=== PATIENT | male | born 1955 | race Caucasian/White ===

== ENCOUNTER 2020-02-19 05:57 | Inpatient (IN) ==
[2020-02-13 11:51] LABS: Basophils # (Auto) 0.04 K/mcL (0.00-0.20); Basophils % (Auto) 0.6 % (0.0-2.0); Eosinophils % (Auto) 4.8 % (0.0-7.0); Hematocrit 33.1 % (41.0-55.0); Hemoglobin 11.1 g/dL (13.5-16.5); Lymphocytes # (Auto) 1.29 K/mcL (1.50-4.80); Lymphocytes % (Auto) 20.8 % (15.0-49.0); Mean Cell Volume 97.9 fL (80.0-100.0); Mean Corpuscular HGB Conc 33.5 g/dL (31.0-36.0); Mean Platelet Volume 9.7 fL (7.4-10.4); Monocytes # (Auto) 0.65 K/mcL (0.10-0.90); Monocytes % (Auto) 10.5 % (1.0-12.0); Neutrophils % (Auto) 63.3 % (38.0-78.0); Platelet Count 238 K/mcL (140-440); RBC 3.38 M/mcL (4.50-5.90); Red Cell Distribution Width 12.7 % (11.5-14.5); WBC 6.2 K/mcL (4.5-11.0)
[2020-02-13 12:30] LABS: Blood Urea Nitrogen 15 mg/dL (8-23); Calcium 8.9 mg/dL (8.6-10.4); Carbon Dioxide 26 mmol/L (22-30); Chloride 98 mmol/L (96-108); Glomerular Filtration Rate 98; Glucose 111 mg/dL (70-105); Partial Thromboplastin Time 32.7 sec (20.0-37.0); Prothrombin Time 13.7 sec (11.9-14.5)
[2020-02-13 13:29] LABS: Appearance,Urine CLEAR (Clear); Bilirubin,Urine Negative (Negative); Color,Urine YELLOW; Culture Indicated,Urine yes; Glucose,Urine (UA) Negative (Negative); Ketones,Urine Negative (Negative); Leukocyte Esterase,Urine 25 /ug (Negative); Mucus,Urine FEW /hpf; Nitrate,Urine Negative (Negative); Protein,Urine 30 mg/dL (Negative); Specific Gravity,Urine 1.019 (1.000-1.035); Urine Blood Negative (Negative); Urine RBC 1 /hpf (0-1); Urine Squamous Epithelial Cell < 1 /hpf (0-4); Urine WBC 15 /hpf (0-4); Urobilinogen,Urine Negative
[2020-02-13 13:35] LABS: Estimated Average Glucose(eAG) 123 mg/dL; Hemoglobin A1C 5.9 % Hgb (4.0-6.0)
[~2020-02-19 05:57] MED LIST: IPRATROPIUM/ALBUTEROL 3 ML AMPUL.NEB NEB PRN; SCOPOLAMINE 1 PATCH PATCH TOPICAL PRN
[2020-02-19] MEDS ORDERED: ceFAZolin 3 GM in DEXTROSE 5% IN WATER 50 ML IV SCH (06:00)
[2020-02-19] MEDS ORDERED: 0.9 % SODIUM CHLORIDE 9 ML, KETOROLAC 30 MG, ROPIVACAINE HCL/PF 49.5 ML, EPINEPHrine 0.... IJ SCH (06:00)
[2020-02-19] MEDS ORDERED: PREGABALIN 75 MG CAPSULE PO SCH (06:00)
[2020-02-19] MEDS ORDERED: ACETAMINOPHEN 500 MG TABLET PO SCH (06:00)
[2020-02-19] MEDS ORDERED: oxyCODONE 10 MG TAB.ER.12H PO SCH (06:00)
[2020-02-19] MEDS ORDERED: GENTAMICIN SULFATE 800 MG/20 ML VIAL IR ONE (06:50)
[2020-02-19] MEDS ORDERED: KETAMINE 100 MG/ML ML ONE (07:46)
[2020-02-19] MEDS ORDERED: ONDANSETRON 4 MG/2 ML VIAL ONE (07:46)
[2020-02-19] MEDS ORDERED: fentaNYL 250 MCG/5 ML VIAL IV ONE (07:46)
[2020-02-19] MEDS ORDERED: LIDOCAINE HCL/PF 100 MG/5 ML SYRINGE IV ONE (07:46)
[2020-02-19] MEDS ORDERED: ePHEDrine 50 MG/ML AMPUL IV ONE (07:46)
[2020-02-19] MEDS ORDERED: PROPOFOL 200 MG/20 ML VIAL IV ONE (07:46)
[2020-02-19] MEDS ORDERED: DEXAMETHASONE 10 MG/ML VIAL ONE (07:46)
[2020-02-19] MEDS ORDERED: PROMETHAZINE 25 MG/ML VIAL IV PRN (08:31)
[2020-02-19] MEDS ORDERED: NALOXONE HCL 0.4 MG/ML VIAL IV PRN (08:31)
[2020-02-19] MEDS ORDERED: ePHEDrine 50 MG/ML AMPUL IV PRN (08:31)
[2020-02-19] MEDS ORDERED: ATROPINE SULFATE 0.4 MG/ML VIAL IV PRN (08:31)
[2020-02-19] MEDS ORDERED: IPRATROPIUM/ALBUTEROL 3 ML AMPUL.NEB NEB PRN (08:31)
[2020-02-19] MEDS ORDERED: METHOCARBAMOL 1,000 MG/10 ML VIAL IV PRN (08:31)
[2020-02-19] MEDS ORDERED: HYDROmorphone 0.5 MG/0.5 ML SYRINGE IV PRN (08:31)
[2020-02-19] MEDS ORDERED: MEPERIDINE 25 MG/ML SYRINGE IV PRN (08:31)
[2020-02-19] MEDS ORDERED: METOPROLOL TARTRATE 5 MG/5 ML VIAL IV PRN (08:31)
[2020-02-19] MEDS ORDERED: ONDANSETRON 4 MG/2 ML VIAL IV PRN ×4 (08:31→08:50)
[2020-02-19] MEDS ORDERED: LACTATED RINGERS 1,000 ML IV SCH (08:45)
[2020-02-19] MEDS ORDERED: MAGNESIUM HYDROXIDE 30 ML ORAL.SUSP PO PRN ×2 (08:50→09:05)
[2020-02-19] MEDS ORDERED: ACETAMINOPHEN 325 MG TABLET PO PRN (08:50)
[2020-02-19] MEDS ORDERED: KETOROLAC 15 MG/ML VIAL IV PRN (08:50)
[2020-02-19] MEDS ORDERED: HYDROcodone/APAP 10/325MG TABLET PO PRN (08:50)
[2020-02-19] MEDS ORDERED: FLEETS ADULT ENEMA PR PRN (08:50)
[2020-02-19] MEDS ORDERED: TRANEXAMIC ACID 1,000 MG/10 ML VIAL IV SCH (08:50)
[2020-02-19] MEDS ORDERED: HYDROmorphone 1 MG/ML SYRINGE IV PRN (08:50)
[2020-02-19] MEDS ORDERED: POLYETHYLENE GLYCOL 3350 17 GM PACKET PO PRN (08:50)
[2020-02-19] MEDS ORDERED: BISACODYL 10 MG SUPP.RECT PR PRN (08:50)
--- NOTE | 2020-02-19 08:50 | Brief Operative Note ---
Brief Operative Note Date of procedure: 02/19/20 Pre-op diagnosis: right hip djd severe Post-op diagnosis: same Procedure: Right total hip Grafts/Implants: Yes Anesthesia: GETA Findings: severe djd Complications: none Complications Description: none Surgeon: Israel Rodriguez Environmental Health Technician: Pantera Greer Estimated blood loss (cc): 50 Tourniquet Time (Minutes): 0 Specimens Removed/Pathology: none sent Condition: stable Disposition: PACU
[2020-02-19] MEDS ORDERED: ACETAMINOPHEN 500 MG TABLET PO PRN (09:05)
--- NOTE | 2020-02-19 09:05 | Discharge Plan ---
Discharge Instructions - [facility] Patient Instructions Total Hip Protocol: Follow activity instructions as provided by Physical Therapy. Discharge Plan Patient/Caregiver Discharge Instructions Activity: ambulate only with your walker and as per physical therapy Diet: Regular Diet Prescriptions: New aspirin 325 mg Tablet,Delayed Release (Dr/Ec) 325 mg PO BID Qty: 60 RF: 0 docusate sodium 100 mg Capsule 100 mg PO BID Qty: 60 RF: 0 oxycodone-acetaminophen 5-325 mg tablet 1 - 2 tab PO Q4H MDD 8 PRN (Reason: pain) Qty: 75 RF: 0 No Action (DME) Blood Pressure Cuff misc See Rx Instructions .ROUTE .MEDSUPPLY Qty: 1 RF: 0 hydrochlorothiazide 25 mg tablet 25 mg PO QDAY Qty: 90 RF: 3 Eliquis 5 mg tablet 5 mg PO BID Qty: 180 RF: 3 cefuroxime axetil 500 mg tablet 500 mg PO BID Qty: 180 RF: 3 (DME) lancets [OneTouch UltraSoft Lancets] Misc See Rx Instructions .ROUTE .MEDSUPPLY Qty: 100 RF: 3 (DME) blood sugar diagnostic [OneTouch Ultra Blue Test Strip] Strip See Rx Instructions .ROUTE .MEDSUPPLY Qty: 100 RF: 3 metformin 500 mg tablet 500 mg PO BID Qty: 180 RF: 3 lisinopril 40 mg tablet 40 mg PO QDAY Qty: 90 RF: 3 Onetouch Ultra Blue INVITR STRP .Route RF: 0 albuterol sulfate 2.5 mg /3 mL (0.083 %) solution for nebulization 2.5 mg INHALATION Q6HP PRN (Reason: Shortness Of Breath) RF: 0 All Day Allergy (cetirizine) 10 mg capsule 10 mg PO DAILYP PRN (Reason: ALLERGY SYPMTOMS) RF: 0 ascorbic acid (vitamin C) 1,000 mg tablet 1 g PO QDAY RF: 0 red yeast rice 600 mg capsule 1,200 mg PO QDAY RF: 0 cholecalciferol (vitamin D3) 1,000 unit capsule 2,000 unit PO QDAY RF: 0 potassium 99 mg tablet 99 mg PO QDAY RF: 0 sennosides-docusate sodium [Senna with Docusate Sodium] 8.6-50 mg Tablet 1 tab-cap PO QDAY RF: 0 acetaminophen 500 mg Tablet 500 mg PO DAILYP PRN (Reason: Pain) RF: 0 omega 3-dhj-vpp-fish oil [Fish Oil] 1,200 (144-216) mg Capsule 1 cap PO DAILY RF: 0 cranberry extract 650 mg Capsule 650 mg PO QDAY RF: 0 torsemide 20 mg tablet 20 mg PO QDAY PRN (Reason: Edema) RF: 0 magnesium hydroxide [Dulcolax (magnesium hydroxide)] 400 mg/5 mL Suspension 1,200 mg PO DAILYP PRN (Reason: Constipation) RF: 0 Other Ambulatory Orders: Physical Therapy DC - [facility] (Routine) Location: None Selected Ordered By: Pantera Greer Toilet Riser Discharge Order (ONCE) Location: None Selected Ordered By: Pantera Greer Walker (ONCE) Location: None Selected Ordered By: Pantera Greer Follow Up Plan Follow up with: Pantera Greer PA-C [Physician Shipping Lead] - Patient Disposition: Home, Self-Care Prognosis: Good Rehab Potential: Good I certify that the patient requires SNF services: No Overall status at discharge: patient is progressing back to baseline Discharge Orders: Discharge Order (Routine); Ordered 02/19/20 Ordered By: Pantera Greer
[2020-02-19] MEDS: fentaNYL 100 MCG/2 ML VIAL IV PRN ×6 (09:15→09:50)
[2020-02-19] MEDS ORDERED: CETIRIZINE 10 MG TABLET PO PRN (09:15)
[2020-02-19] MEDS ORDERED: TORSEMIDE 10 MG TABLET PO PRN (09:15)
--- NOTE | 2020-02-19 09:17 | Operative Note ---
DATE OF OPERATION: 02/19/2020 PREOPERATIVE DIAGNOSIS: Right hip degenerative arthritis, severe. POSTOPERATIVE DIAGNOSIS: Right hip degenerative arthritis, severe. PROCEDURE: Right total hip arthroplasty using Abisai components. SURGEON: Israel Rodriguez M.D. FOOD EDITOR: Pantera Greer PA-C. The PA's assistance was required for the safe and efficient completion of the entire case. This providers expertise and technical skill were required throughout the case. The PA assisted with preoperative coordination, intraoperative retraction, wound closure, dressing and splint application, as well as postoperative documentation and care coordination. ANESTHESIA: General LMA anesthesia. COMPLICATIONS: None. IMPLANTS: A size 56 cup with a hooded liner and a size 6 stem with a +5 neck length ceramic ball. DESCRIPTION OF PROCEDURE: The patient was brought to the operating room, put to sleep with general LMA anesthesia. Once asleep, the patient had the right hip sterilely prepped and draped in the usual sterile fashion. Timeout was performed, confirming this by initials, consent form, and x-rays. We confirmed preoperative antibiotics and tranexamic acid. We then made a superior approach to the hip, exposing the capsule. We dissected through the fascial layer, placed the Charnley retractor and released the capsule. We dislocated the hip superiorly. We made our neck cut at 34 mm from the center of hip rotation. We then reamed up the acetabulum to the size a 56 and implanted a 56 cup. We broached up to the size 6 stem. We took an x-ray. This showed the leg to be slightly longer than the other leg. We then re-broached to countersink the stem. We placed the final implant, a +5 neck length on a 36 mm ceramic ball. This was reduced, very stable throughout the arc of motion. We irrigated thoroughly. We repaired the capsule with #1 Ethibond, repaired the fascial layer with #1 Stratafix, and then the skin was closed with Stratafix and adhesive closure. The patient tolerated this well without complication. RB[facility]:uday Job ID: [id number] Doc ID: [id number] Israel Rodriguez MD
--- NOTE | 2020-02-19 09:41 | XRay Report ---
INDICATION: Right total hip arthroplasty TECHNIQUE: AP pelvis. AP and lateral right hip COMPARISON: None. FINDINGS: Status post right total hip arthroplasty. Normal anatomic alignment demonstrated. There is mild postsurgical soft tissue gas IMPRESSION: Status post right total hip arthroplasty Interpreted and Authenticated by: Adalid Carrasco 02/19/20
[2020-02-19] MEDS: ASPIRIN 325 MG ENTERIC COATED TABLET PO SCH ×2 (10:49→21:02)
[2020-02-19] MEDS: DOCUSATE SODIUM 100 MG CAPSULE PO SCH ×2 (10:49→20:58)
[2020-02-19] MEDS: LACTATED RINGERS 1,000 ML IV SCH ×2 (10:51→20:37)
[2020-02-19] MEDS: 0.9 % SODIUM CHLORIDE 10 ML SYRINGE IV SCH ×2 (13:37→21:00)
[2020-02-19] MEDS: BENZOCAINE/MENTHOL 1 LOZENGE PO PRN ×2 (15:53→20:59)
[2020-02-19] MEDS: ceFAZolin 1 GM VIAL IV SCH ×2 (16:13→23:51)
[2020-02-19] MEDS ORDERED: ceFAZolin 1 GM VIAL ONE (16:15)
[2020-02-19] MEDS: metFORMIN 500 MG TABLET PO SCH (17:29)
[2020-02-19] MEDS ORDERED: KETOROLAC 30 MG/ML VIAL ONE (20:58)
[2020-02-19] MEDS ORDERED: TEMAZEPAM 15 MG CAPSULE PO PRN (21:00)
[2020-02-19] MEDS ORDERED: SENNOSIDES 1 TABLET PO SCH (21:00)
[2020-02-20] MEDS: BENZOCAINE/MENTHOL 1 LOZENGE PO PRN ×2 (00:08→03:33)
[2020-02-20] MEDS ORDERED: KETOROLAC 30 MG/ML VIAL ONE (03:29)
[2020-02-20] MEDS: LACTATED RINGERS 1,000 ML IV SCH (03:55)
[2020-02-20] MEDS: 0.9 % SODIUM CHLORIDE 10 ML SYRINGE IV SCH (03:58)
[2020-02-20] MEDS: oxyCODONE/APAP 5/325MG TABLET PO PRN ×2 (04:26→10:07)
[2020-02-20] MEDS: metFORMIN 500 MG TABLET PO SCH (07:51)
--- NOTE | 2020-02-20 07:51 | Orthopedic Progress Note ---
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 Chief Complaint: [Pt is stable this morning on post operative day without any significant concerns or complaints. Patients vital signs have remained stable. Patients dressing is dry and is grossly intact from a neurovascular and motor standpoint. Patients 10 point ROS is otherwise negative. ] Constitutional Vitals: Vital Signs Temp Pulse Resp BP Pulse Ox 96.8 F L 72 20 108/86 100 02/20/20 07:14 02/20/20 07:14 02/20/20 07:14 02/20/20 07:14 02/20/20 03:23 Period Temp Pulse Resp BP Sys/Arana Pulse Ox Last 24 Hr 96.8 F-98.5 F 65-87 10- 108-185/63-99 90-100 Intake and Output 02/19/20 02/20/20 02/20/20 21:59 05:59 13:59 Intake Total 3020 100 Output Total 175 725 200 Balance 2845 -625 -200 Weight 270 lb 12.8 oz Intake & Output: Intake & Output 02/19/20 02/20/20 02/20/20 21:59 05:59 13:59 Intake Total 3020 100 Output Total 175 725 200 Balance 2845 -625 -200 Weight 270 lb 12.8 oz Intake: IV 715 Lactated Ringers 1,000 ml @ 100 715 mls/hr IV .Q10H [facility] Rx#: [id number] Oral 2305 100 Output: Void Amount 175 725 200 Other: Meal snack Percent of Meal Consumed 100% Feeding Ability Independent Urine Appearance Clear Clear Urine Color Bright Yellow Bright Yellow OBJ DATA Labs CBC & Chem 7: 02/20/20 05:33 02/13/20 09:28 Labs: Abnormal Lab Results 02/20/20 05:33 Hct 26.3 L Meds: Medications Acetaminophen (Tylenol) 650 mg PO Q6HP PRN; Protocol PRN Reason: Per Pain Protocol/Fever > 101 Ascorbic Acid (Vitamin C) 1,000 mg PO DAILY [facility] Aspirin (Ecotrin) 325 mg PO BID [facility] Last Admin: 02/19/20 21:02 Dose: 325 mg Documented by: Bisacodyl (Dulcolax) 10 mg SC Q2-3DAYS PRN PRN Reason: Constipation Cetirizine HCl (Zyrtec) 10 mg PO DAILYP PRN PRN Reason: ALLERGY SYMPTOMS Docusate Sodium (Colace) 100 mg PO BID [facility] Last Admin: 02/19/20 20:58 Dose: 100 mg Documented by: Hydrochlorothiazide (Oretic) 25 mg PO QDAY [facility] Hydromorphone HCl (Dilaudid) 0 mg IV Q2HP PRN; Protocol PRN Reason: Per Pain Protocol Last Admin: 02/19/20 11:04 Dose: 1 mg Documented by: Lactated Ringer's (Lactated Ringers) 1,000 mls @ 100 mls/hr IV .Q10H [facility] Last Admin: 02/20/20 03:55 Dose: Not Given Documented by: Ketorolac Tromethamine (Toradol) 15 mg IV Q6HP PRN; Protocol PRN Reason: Per Pain Protocol Stop: 02/21/20 08:51 Lisinopril (Zestril) 40 mg PO DAILY [facility] Magnesium Hydroxide (Milk Of Magnesia) 30 ml PO BIDP PRN PRN Reason: Constipation Metformin HCl (Glucophage) 500 mg PO BIDCC [facility] Last Admin: 02/19/20 17:29 Dose: 500 mg Documented by: Ondansetron HCl (Zofran) 4 mg IV Q4HP PRN; Protocol PRN Reason: Nausea And Vomiting Oxycodone/Acetaminophen (Percocet 5-325 Mg) 0 tab PO Q4-6HP PRN PRN Reason: Per Pain Protocol Last Admin: 02/20/20 04:26 Dose: 1 tab Documented by: Polyethylene Glycol (Miralax) 17 gm PO DAILYP PRN PRN Reason: Constipation Senna (Senokot) 2 tab PO HS [facility] Last Admin: 02/19/20 20:59 Dose: 2 tab Documented by: Sodium Biphosphate/Sodium Phosphate (Fleets Adult) 1 dose SC Q3-4DAYS PRN PRN Reason: Constipation Sodium Chloride (Saline Flush) 10 ml IV Q8 [facility] Last Admin: 02/20/20 03:58 Dose: 10 ml Documented by: Temazepam (Restoril) 15 mg PO HSP PRN PRN Reason: Insomnia Last Admin: 02/19/20 21:00 Dose: 15 mg Documented by: Throat Lozenges (Cepacol) 1 lozenge PO PRN PRN PRN Reason: Sore Throat Last Admin: 02/20/20 03:33 Dose: 1 lozenge Documented by: Torsemide (Demadex) 20 mg PO DAILYP PRN PRN Reason: Edema Vitamin D (Vitamin D3) 2,000 unit PO DAILY [facility] A/P Narrative A/P Narrative: The patient has been educated regarding dressing care, Physical Therapy recommendations, home exercises, restrictions, and follow up appointments. The patient has had all necessary DME prescribed. The patient has remained relatively stable during their hospital course. Time Spent With Patient Time: Total time spent is greater than 50% in coordination of care (as documented) at patient's floor/unit and/or counseling patient: Total time spent with greater than 50% in coordination of care (as documented) at patient's floor/unit and/or counseling patient:: less than 15 minutes
[2020-02-20] MEDS: ASPIRIN 325 MG ENTERIC COATED TABLET PO SCH (08:53)
[2020-02-20] MEDS: DOCUSATE SODIUM 100 MG CAPSULE PO SCH (08:53)
[2020-02-20] MEDS ORDERED: ASCORBIC ACID 500 MG TABLET PO SCH (09:00)
[2020-02-20] MEDS ORDERED: SENNOSIDES DOCUSATE SODIUM PO SCH (09:00)
[2020-02-20] MEDS ORDERED: [UNRECOGNIZED DRUG - OTHER] PO SCH (09:00)
[2020-02-20] MEDS ORDERED: HYDROCHLOROTHIAZIDE 25 MG TABLET PO SCH (09:00)
[2020-02-20] MEDS ORDERED: VITAMIN D3 1,000 UNIT TABLET PO SCH (09:00)
[2020-02-20] MEDS ORDERED: NON FORMULARY MEDICATION 1 DOSE MISCELL (Potassium 99 MG) PO SCH (09:00)
[2020-02-20] MEDS ORDERED: LISINOPRIL 20 MG TABLET PO SCH (09:00)
[2020-02-20] MEDS ORDERED: CRANBERRY EXTRACT 650 MG PO SCH (09:00)
[2020-02-20] MEDS ORDERED: FLU VACC QS2020-21(6MOS UP)/PF 60 MCG/0.5 ML SYRINGE IM ONE (10:00)
== END 2020-02-20 11:00 | DRG 470 ==
LOC: MEDSUR 05:57 → MEDSUROUT 05:57 → EDSTATUS 09:30 → MEDSUR 10:25 → EDSTATUS 11:34
PROVIDERS: ADMIT Orthopaedic Surgery; ATTEND Orthopaedic Surgery

== ENCOUNTER 2024-05-28 21:30 | Inpatient (IN) ==
[2024-05-28] MEDS: ASPIRIN 81 MG TAB.CHEW CHEWED ONE (22:05)
[2024-05-28] MEDS: IPRATROPIUM/ALBUTEROL 3 ML AMPUL.NEB NEB ONE (22:13)
[2024-05-28 22:15] LABS: Basophils # (Auto) 0.02 K/mcL (0.00-0.30); Basophils % (Auto) 0.2 % (0.0-2.0); Eosinophils # (Auto) 0.09 K/mcL (0.00-0.70); Hematocrit 41.2 % (40.1-51.0); Hemoglobin 13.1 g/dL (13.7-17.5); Lymphocytes # (Auto) 0.66 K/mcL (1.50-4.80); Lymphocytes % (Auto) 7.5 % (15.5-49.0); Mean Cell Volume 98.8 fL (80.0-100.0); Mean Corpuscular HGB Conc 31.8 g/dL (31.0-36.0); Mean Platelet Volume 9.2 fL (8.8-12.5); Monocytes # (Auto) 0.37 K/mcL (0.10-0.90); Monocytes % (Auto) 4.2 % (1.0-12.0); Neutrophils % (Auto) 86.3 % (38.0-78.0); Platelet Count 206 K/mcL (140-440); RBC 4.17 M/mcL (4.63-6.08); Red Cell Distribution Width 14.4 % (11.5-14.5); WBC 8.8 K/mcL (4.5-11.0)
[2024-05-28] MEDS: ALBUTEROL SULFATE 2.5 MG/3 ML NEBULIZER NEB ONE (22:31)
[2024-05-28 22:33] LABS: Prothrombin Time 13.1 sec (11.9-14.5)
[2024-05-28 23:24] LABS: ALT/SGPT 17 U/L (<40); AST/SGOT 29 U/L (<40); Albumin 4.5 gm/dL (3.2-5.2); Albumin/Globulin Ratio 1.4 (1.0-2.3); Alkaline Phosphatase 96 U/L (39-117); Bilirubin,Total 0.3 mg/dL (0.1-1.0); Blood Urea Nitrogen 23 mg/dL (8-23); Calcium 9.1 mg/dL (8.6-10.4); Carbon Dioxide 31 mmol/L (22-30); Chloride 92 mmol/L (96-108); Globulin 3.3 gm/dL (2.2-3.7); Glomerular Filtration Rate 61; Glucose 213 mg/dL (70-105); Potassium 4.3 mmol/L (3.3-5.1); Sodium 140 mmol/L (133-145)
[2024-05-29] MEDS ORDERED: ONDANSETRON 4 MG/2 ML VIAL IV PRN (00:04)
[2024-05-29] MEDS: IPRATROPIUM/ALBUTEROL 3 ML AMPUL.NEB NEB PRN (02:37)
[2024-05-29] MEDS: methylPREDNISolone SOD SUCC 125 MG/2 ML VIAL IV SCH ×2 (05:39→14:13)
[2024-05-29] MEDS: AMOXICILLIN/POTASSIUM CLAV 875 MG TABLET PO SCH (08:12)
[2024-05-29] MEDS: FUROSEMIDE 40 MG/4 ML VIAL IV SCH (08:13)
[2024-05-29] MEDS ORDERED: MAGNESIUM SULFATE 2 GM/50 ML BAG IV PRN (08:22)
[2024-05-29] MEDS ORDERED: POTASSIUM CHLORIDE 40 MEQ in DEXTROSE 5% IN WATER 500 ML IV PRN (08:22)
[2024-05-29] MEDS ORDERED: POTASSIUM CHLORIDE 20 MEQ TABLET PO PRN ×2 (08:22)
[2024-05-29] MEDS ORDERED: METOCLOPRAMIDE 10 MG/2 ML VIAL IV PRN (08:22)
[2024-05-29] MEDS ORDERED: DEXTROSE 31 GM ORAL.SUSP PO PRN (08:23)
[2024-05-29] MEDS ORDERED: DEXTROSE 50% 50 ML VIAL IV PRN (08:23)
[2024-05-29 09:07] LABS: C-Reactive Protein 1.26 mg/dL (0.03-0.80); Phosphorous 2.6 mg/dL (2.5-4.5); Uric Acid 7.5 mg/dL (2.5-8.0)
[2024-05-29] MEDS: DOCUSATE SODIUM 100 MG CAPSULE PO SCH (09:16)
[2024-05-29] MEDS: AZITHROMYCIN 500 MG in 0.9 % SODIUM CHLORIDE 250 ML IV SCH (10:08)
[2024-05-29] MEDS: INSULIN LISPRO 1 UNIT/0.01 ML UNIT SQ SCH (12:17)
[2024-05-29] MEDS: IPRATROPIUM/ALBUTEROL 3 ML AMPUL.NEB NEB SCH (12:50)
[2024-05-29] MEDS: BUDESONIDE 0.5 MG/2 ML AMPUL.NEB NEB SCH (12:50)
[2024-05-29] MEDS: acetaZOLAMIDE SOD 500 MG VIAL IV ONE (14:13)
[2024-05-29] MEDS: RIVAROXABAN 20 MG TABLET PO SCH (17:53)
[2024-05-29] MEDS: ACETAMINOPHEN 325 MG TABLET PO PRN (22:53)
[2024-05-30 06:41] LABS: ALT/SGPT 15 U/L (<40); AST/SGOT 24 U/L (<40); Albumin 4.1 gm/dL (3.2-5.2); Albumin/Globulin Ratio 1.4 (1.0-2.3); Alkaline Phosphatase 80 U/L (39-117); Bilirubin,Direct < 0.2 mg/dL (0-0.3); Bilirubin,Total 0.3 mg/dL (0.1-1.0); Blood Urea Nitrogen 35 mg/dL (8-23); Calcium 9.5 mg/dL (8.6-10.4); Carbon Dioxide 33 mmol/L (22-30); Chloride 92 mmol/L (96-108); Glomerular Filtration Rate 67; Glucose 233 mg/dL (70-105); Lactate Dehydrogenase 197 U/L (135-225); Phosphorous 4.1 mg/dL (2.5-4.5); Potassium 3.7 mmol/L (3.3-5.1); Sodium 135 mmol/L (133-145); Triglycerides 48 mg/dL (<150); Uric Acid 7.5 mg/dL (2.5-8.0)
[2024-05-30 06:57] LABS: Basophils # (Auto) 0.01 K/mcL (0.00-0.30); Basophils % (Auto) 0.1 % (0.0-2.0); Eosinophils # (Auto) 0 K/mcL (0.00-0.70); Eosinophils % (Auto) 0 % (0.0-7.0); Hematocrit 37.8 % (40.1-51.0); Hemoglobin 12.1 g/dL (13.7-17.5); Lymphocytes # (Auto) 0.23 K/mcL (1.50-4.80); Lymphocytes % (Auto) 2.1 % (15.5-49.0); Mean Cell Volume 98.2 fL (80.0-100.0); Mean Platelet Volume 9.3 fL (8.8-12.5); Monocytes # (Auto) 0.52 K/mcL (0.10-0.90); Monocytes % (Auto) 4.9 % (1.0-12.0); Neutrophils % (Auto) 92.2 % (38.0-78.0); Platelet Count 190 K/mcL (140-440); RBC 3.85 M/mcL (4.63-6.08); Red Cell Distribution Width 14.1 % (11.5-14.5); WBC 10.7 K/mcL (4.5-11.0)
[2024-05-30] MEDS: PANTOPRAZOLE 40 MG PACKET PO SCH (07:27)
[2024-05-30] MEDS: METOPROLOL SUCCINATE 25 MG TAB.XL.24H PO SCH (08:31)
[2024-05-30] MEDS: HYDROcodone/APAP 5/325MG TABLET PO PRN (11:54)
[2024-05-30] MEDS: methylPREDNISolone SOD SUCC 125 MG/2 ML VIAL IV SCH (13:54)
[2024-05-31 06:48] LABS: ALT/SGPT 24 U/L (<40); AST/SGOT 28 U/L (<40); Albumin 4.1 gm/dL (3.2-5.2); Albumin/Globulin Ratio 1.4 (1.0-2.3); Alkaline Phosphatase 76 U/L (39-117); Bilirubin,Direct < 0.2 mg/dL (0-0.3); Bilirubin,Total 0.2 mg/dL (0.1-1.0); Blood Urea Nitrogen 38 mg/dL (8-23); Calcium 9.7 mg/dL (8.6-10.4); Carbon Dioxide 32 mmol/L (22-30); Chloride 95 mmol/L (96-108); Globulin 2.9 gm/dL (2.2-3.7); Glomerular Filtration Rate 76; Glucose 232 mg/dL (70-105); Lactate Dehydrogenase 178 U/L (135-225); Potassium 4.5 mmol/L (3.3-5.1); Sodium 138 mmol/L (133-145); Triglycerides 54 mg/dL (<150)
[2024-05-31] MEDS: TORSEMIDE 20 MG TABLET PO SCH (09:57)
[2024-05-31] MEDS: guaiFENesin 600 MG TAB.SR.12H PO ONE (10:13)
[2024-05-31] MEDS: SENNOSIDES 1 TABLET PO PRN (20:44)
[2024-05-31] MEDS: POLYETHYLENE GLYCOL 3350 17 GM PACKET PO PRN (20:44)
[2024-05-31] MEDS: methylPREDNISolone SOD SUCC 40 MG/ML VIAL IV SCH (20:45)
[2024-05-31] MEDS: METOPROLOL TARTRATE 5 MG/5 ML VIAL IV PRN (22:03)
[2024-06-01 06:38] LABS: ALT/SGPT 30 U/L (<40); AST/SGOT 30 U/L (<40); Albumin/Globulin Ratio 1.5 (1.0-2.3); Alkaline Phosphatase 73 U/L (39-117); Bilirubin,Direct < 0.2 mg/dL (0-0.3); Bilirubin,Total 0.2 mg/dL (0.1-1.0); Blood Urea Nitrogen 50 mg/dL (8-23); Calcium 9.2 mg/dL (8.6-10.4); Carbon Dioxide 34 mmol/L (22-30); Chloride 95 mmol/L (96-108); Globulin 2.7 gm/dL (2.2-3.7); Glomerular Filtration Rate 61; Glucose 264 mg/dL (70-105); Lactate Dehydrogenase 199 U/L (135-225); Phosphorous 4.3 mg/dL (2.5-4.5); Potassium 4.1 mmol/L (3.3-5.1); Sodium 139 mmol/L (133-145); Triglycerides 80 mg/dL (<150); Uric Acid 8.4 mg/dL (2.5-8.0)
[2024-06-01] MEDS: predniSONE 20 MG TABLET PO SCH (10:09)
[2024-06-01] MEDS: METOPROLOL SUCCINATE 25 MG TAB.XL.24H PO SCH (10:11)
[2024-06-02 06:44] LABS: ALT/SGPT 55 U/L (<40); AST/SGOT 52 U/L (<40); Albumin/Globulin Ratio 1.5 (1.0-2.3); Alkaline Phosphatase 74 U/L (39-117); Bilirubin,Direct < 0.2 mg/dL (0-0.3); Bilirubin,Total 0.4 mg/dL (0.1-1.0); Blood Urea Nitrogen 47 mg/dL (8-23); Calcium 9.2 mg/dL (8.6-10.4); Carbon Dioxide 34 mmol/L (22-30); Chloride 96 mmol/L (96-108); Globulin 2.7 gm/dL (2.2-3.7); Glomerular Filtration Rate 76; Glucose 194 mg/dL (70-105); Lactate Dehydrogenase 211 U/L (135-225); Phosphorous 4.2 mg/dL (2.5-4.5); Potassium 4.2 mmol/L (3.3-5.1); Sodium 139 mmol/L (133-145); Triglycerides 102 mg/dL (<150); Uric Acid 8.5 mg/dL (2.5-8.0)
[2024-06-02] MEDS: acetaZOLAMIDE SOD 500 MG VIAL IV SCH (09:19)
[2024-06-02] MEDS: FUROSEMIDE 40 MG/4 ML VIAL IV SCH (09:19)
[2024-06-02 09:38] LABS: ABG Methemoglobin 0.1 % (0.4-1.5); Total Hemoglobin 13.4 gm/Dl (13.5-16.5); VBG Base Excess 6 (-2-3); VBG HCO3 35.9 mmol/L (24.0-28.0); VBG Oxygen Saturation 89.9 % (40.0-70.0); VBG PH 7.27 U (7.32-7.42); VBG Total CO2 38.4 mmol/L (25.0-29.0)
[2024-06-02] MEDS: methylPREDNISolone SOD SUCC 125 MG/2 ML VIAL IV SCH (11:56)
[2024-06-02] MEDS ORDERED: IPRATROPIUM/ALBUTEROL 3 ML AMPUL.NEB NEB SCH ×2 (12:00→15:00)
[2024-06-02 12:33] LABS: ABG Methemoglobin 0.3 % (0.4-1.5); Total Hemoglobin 13.6 gm/Dl (13.5-16.5); VBG Base Excess 6 (-2-3); VBG HCO3 36.6 mmol/L (24.0-28.0); VBG Oxygen Saturation 91.6 % (40.0-70.0); VBG PCO2 84.3 mmHg (41.0-51.0); VBG PH 7.26 U (7.32-7.42); VBG PO2 104.6 mmHg (25.0-40.0); VBG Total CO2 39.2 mmol/L (25.0-29.0)
[2024-06-02] MEDS: LEVOFLOXACIN 750 MG/150 ML BAG IV SCH (13:33)
[2024-06-02] MEDS: DILTIAZEM 125 MG in DEXTROSE 5% IN WATER 100 ML IV SCH (14:00)
[2024-06-02] MEDS: DILTIAZEM 125 MG in 0.9 % SODIUM CHLORIDE 100 ML IV SCH ×2 (14:01→14:45)
[2024-06-02 14:49] LABS: ABG Methemoglobin 0.4 % (0.4-1.5); Total Hemoglobin 10.4 gm/Dl (13.5-16.5); VBG Base Excess -4 (-2-3); VBG HCO3 22.1 mmol/L (24.0-28.0); VBG Oxygen Saturation 92.7 % (40.0-70.0); VBG PCO2 44.9 mmHg (41.0-51.0); VBG PH 7.31 U (7.32-7.42); VBG PO2 162.1 mmHg (25.0-40.0); VBG Total CO2 23.5 mmol/L (25.0-29.0)
[2024-06-02] MEDS: LEVALBUTEROL 1.25 MG/3 ML AMPUL.NEB NEB SCH (15:22)
[2024-06-02] MEDS: INSULIN GLARGINE, HUMAN 1 UNIT/0.01 ML SQ SCH (20:26)
[2024-06-02] MEDS: LORazepam 2 MG/ML VIAL IV PRN (22:10)
[2024-06-03] MEDS: ALBUTEROL SULFATE 2.5 MG/3 ML NEBULIZER NEB PRN (05:01)
[2024-06-03 07:40] LABS: Basophils # (Auto) 0 K/mcL (0.00-0.30); Basophils % (Auto) 0 % (0.0-2.0); Eosinophils # (Auto) 0 K/mcL (0.00-0.70); Eosinophils % (Auto) 0 % (0.0-7.0); Hematocrit 39.7 % (40.1-51.0); Hemoglobin 12.8 g/dL (13.7-17.5); Lymphocytes # (Auto) 0.39 K/mcL (1.50-4.80); Lymphocytes % (Auto) 4.5 % (15.5-49.0); Mean Cell Volume 98.5 fL (80.0-100.0); Mean Corpuscular HGB Conc 32.2 g/dL (31.0-36.0); Mean Platelet Volume 9.5 fL (8.8-12.5); Monocytes % (Auto) 6.9 % (1.0-12.0); Neutrophils % (Auto) 86.1 % (38.0-78.0); Platelet Count 180 K/mcL (140-440); RBC 4.03 M/mcL (4.63-6.08); Red Cell Distribution Width 14.1 % (11.5-14.5); WBC 8.7 K/mcL (4.5-11.0)
[2024-06-03 07:57] LABS: ALT/SGPT 54 U/L (<40); AST/SGOT 40 U/L (<40); Albumin 4.2 gm/dL (3.2-5.2); Albumin/Globulin Ratio 1.5 (1.0-2.3); Alkaline Phosphatase 77 U/L (39-117); Bilirubin,Direct 0.2 mg/dL (<0.3); Bilirubin,Total 0.5 mg/dL (0.1-1.0); Blood Urea Nitrogen 57 mg/dL (8-23); Calcium 9.4 mg/dL (8.6-10.4); Carbon Dioxide 33 mmol/L (22-30); Chloride 94 mmol/L (96-108); Globulin 2.8 gm/dL (2.2-3.7); Glomerular Filtration Rate 67; Glucose 196 mg/dL (70-105); Lactate Dehydrogenase 211 U/L (135-225); Potassium 3.8 mmol/L (3.3-5.1); Sodium 140 mmol/L (133-145); Triglycerides 128 mg/dL (<150); Uric Acid 9.6 mg/dL (2.5-8.0)
[2024-06-03 08:52] LABS: ABG Methemoglobin 0.2 % (0.4-1.5); Total Hemoglobin 13.7 gm/Dl (13.5-16.5); VBG Base Excess 6 (-2-3); VBG HCO3 34.1 mmol/L (24.0-28.0); VBG Oxygen Saturation 91.7 % (40.0-70.0); VBG PCO2 65.4 mmHg (41.0-51.0); VBG PH 7.34 U (7.32-7.42); VBG PO2 77.4 mmHg (25.0-40.0); VBG Total CO2 36.1 mmol/L (25.0-29.0)
[2024-06-03] MEDS: METOPROLOL TARTRATE 50 MG TABLET PO SCH (10:14)
[2024-06-03] MEDS: POTASSIUM CHLORIDE 20 MEQ TABLET PO SCH (10:14)
[2024-06-03] MEDS: DIAZEPAM 5 MG TABLET PO PRN (11:28)
[2024-06-03 12:35] LABS: ABG Methemoglobin 0.3 % (0.4-1.5); VBG Base Excess 9 (-2-3); VBG HCO3 35.6 mmol/L (24.0-28.0); VBG Oxygen Saturation 93.1 % (40.0-70.0); VBG PCO2 57.7 mmHg (41.0-51.0); VBG PH 7.41 U (7.32-7.42); VBG PO2 132.1 mmHg (25.0-40.0); VBG Total CO2 37.4 mmol/L (25.0-29.0)
[2024-06-03] MEDS: INSULIN LISPRO 1 UNIT/0.01 ML UNIT SQ SCH (17:07)
[2024-06-03] MEDS: INSULIN GLARGINE, HUMAN 1 UNIT/0.01 ML SQ SCH (20:44)
[2024-06-04 05:43] LABS: Basophils # (Auto) 0.01 K/mcL (0.00-0.30); Basophils % (Auto) 0.1 % (0.0-2.0); Eosinophils # (Auto) 0 K/mcL (0.00-0.70); Eosinophils % (Auto) 0 % (0.0-7.0); Hematocrit 36.1 % (40.1-51.0); Hemoglobin 11.7 g/dL (13.7-17.5); Lymphocytes # (Auto) 0.47 K/mcL (1.50-4.80); Lymphocytes % (Auto) 5.2 % (15.5-49.0); Mean Cell Volume 98.6 fL (80.0-100.0); Mean Corpuscular HGB Conc 32.4 g/dL (31.0-36.0); Mean Platelet Volume 9.4 fL (8.8-12.5); Monocytes # (Auto) 0.92 K/mcL (0.10-0.90); Monocytes % (Auto) 10.1 % (1.0-12.0); Neutrophils % (Auto) 82.9 % (38.0-78.0); Platelet Count 158 K/mcL (140-440); RBC 3.66 M/mcL (4.63-6.08); Red Cell Distribution Width 14.4 % (11.5-14.5); WBC 9.1 K/mcL (4.5-11.0)
[2024-06-04 06:06] LABS: ALT/SGPT 47 U/L (<40); AST/SGOT 34 U/L (<40); Albumin 3.7 gm/dL (3.2-5.2); Albumin/Globulin Ratio 1.5 (1.0-2.3); Alkaline Phosphatase 66 U/L (39-117); Bilirubin,Direct < 0.2 mg/dL (0-0.3); Bilirubin,Total 0.4 mg/dL (0.1-1.0); Blood Urea Nitrogen 65 mg/dL (8-23); Calcium 9.1 mg/dL (8.6-10.4); Carbon Dioxide 35 mmol/L (22-30); Chloride 97 mmol/L (96-108); Globulin 2.5 gm/dL (2.2-3.7); Glomerular Filtration Rate 61; Glucose 147 mg/dL (70-105); Lactate Dehydrogenase 167 U/L (135-225); Phosphorous 5.1 mg/dL (2.5-4.5); Potassium 3.9 mmol/L (3.3-5.1); Sodium 141 mmol/L (133-145); Triglycerides 77 mg/dL (<150); Uric Acid 10.4 mg/dL (2.5-8.0)
[2024-06-05 06:15] LABS: Basophils # (Auto) 0 K/mcL (0.00-0.30); Basophils % (Auto) 0 % (0.0-2.0); Eosinophils # (Auto) 0 K/mcL (0.00-0.70); Eosinophils % (Auto) 0 % (0.0-7.0); Hematocrit 37.3 % (40.1-51.0); Hemoglobin 11.8 g/dL (13.7-17.5); Lymphocytes # (Auto) 0.33 K/mcL (1.50-4.80); Lymphocytes % (Auto) 3.7 % (15.5-49.0); Mean Cell Volume 98.7 fL (80.0-100.0); Mean Corpuscular HGB Conc 31.6 g/dL (31.0-36.0); Mean Platelet Volume 9.7 fL (8.8-12.5); Monocytes # (Auto) 0.41 K/mcL (0.10-0.90); Monocytes % (Auto) 4.6 % (1.0-12.0); Neutrophils % (Auto) 89.9 % (38.0-78.0); Platelet Count 166 K/mcL (140-440); RBC 3.78 M/mcL (4.63-6.08); Red Cell Distribution Width 14.2 % (11.5-14.5)
[2024-06-05 07:21] LABS: ALT/SGPT 43 U/L (<40); AST/SGOT 28 U/L (<40); Albumin 3.7 gm/dL (3.2-5.2); Albumin/Globulin Ratio 1.5 (1.0-2.3); Alkaline Phosphatase 66 U/L (39-117); Bilirubin,Direct < 0.2 mg/dL (0-0.3); Bilirubin,Total 0.4 mg/dL (0.1-1.0); Blood Urea Nitrogen 56 mg/dL (8-23); Calcium 9.1 mg/dL (8.6-10.4); Carbon Dioxide 35 mmol/L (22-30); Chloride 98 mmol/L (96-108); Globulin 2.4 gm/dL (2.2-3.7); Glomerular Filtration Rate 67; Glucose 191 mg/dL (70-105); Lactate Dehydrogenase 177 U/L (135-225); Phosphorous 4.1 mg/dL (2.5-4.5); Potassium 4.3 mmol/L (3.3-5.1); Sodium 142 mmol/L (133-145); Triglycerides 55 mg/dL (<150); Uric Acid 8.8 mg/dL (2.5-8.0)
[2024-06-05] MEDS: METOPROLOL TARTRATE 50 MG TABLET PO SCH (08:32)
[2024-06-05] MEDS: predniSONE 20 MG TABLET PO SCH (08:32)
[2024-06-05] MEDS: TORSEMIDE 20 MG TABLET PO SCH (08:33)
[2024-06-06 07:17] LABS: ABG Methemoglobin 0.2 % (0.4-1.5); Total Hemoglobin 12.9 gm/Dl (13.5-16.5); VBG Base Excess 8 (-2-3); VBG HCO3 36.8 mmol/L (24.0-28.0); VBG Oxygen Saturation 88.7 % (40.0-70.0); VBG PCO2 72.1 mmHg (41.0-51.0); VBG PH 7.33 U (7.32-7.42)
[2024-06-06] MEDS: LEVOFLOXACIN 750 MG TABLET PO SCH (08:10)
[2024-06-06] MEDS: TIOTROPIUM BROMIDE 18 MCG INHALANT INH SCH (08:23)
[2024-06-06] MEDS: SALMETEROL XINAFOATE 1 PUFF INHALER INH SCH (08:23)
[2024-06-06 12:58] VITALS: TEMP 97.8; O2SAT 96
== END 2024-06-06 12:35 | DRG 189 ==
LOC: ED 21:30 → ICU 05-29 01:34 → MEDSUR 05-30 17:52 → ICU 06-02 10:47
PROVIDERS: ADMIT Internal Medicine; ATTEND Internal Medicine